=== PATIENT | male | born 1960 | race Caucasian/White ===

== ENCOUNTER → 2017-11-25 08:11 | Outpatient (CLI) | payer OTHER, SELFPAY ==
[2017-11-25 09:20] LABS: Add Manual Diff / Slide Review NO; Basophils Percent Auto 0.8 % (0-2); Eosinophils Percent Auto 1.5 % (2-4); Hematocrit 53.1 % (41-53); Hemoglobin 18.2 g/dL (13.5-17.5); Lymphocytes Percent Auto 13.3 % (25-40); Mean Corpuscular HGB Conc 34.3 % (30-36); Mean Corpuscular Hemoglobin 31.7 PG (26-34); Mean Corpuscular Volume 92.6 fL (80-100); Monocytes Percent Auto 6.9 % (3-14); Neutrophils Absolute Auto 7600 /uL (3000-5900); Neutrophils Percent Auto 77.5 % (50-75); Platelet Count 199 X10^3/uL (150-400); Red Blood Cell Count 5.74 X10^6/uL (4.5-5.9); Red Cell Distribution Width 14.1 % (11.6-14.8); White Blood Cell Count 9.8 X10^3/uL (4.5-11.0)
[2017-11-25 09:22] LABS: Hemoglobin A1C% w Est Avg Glu 5.9 % (4.0-6.0)
[2017-11-25 09:26] LABS: Alanine Aminotransferase 43 IU/L (21-72); Albumin 4.3 g/dL (3.5-5.0); Albumin Globulin Ratio 1.4 (1.0-2.8); Alkaline Phosphatase 64 U/L (38-126); Aspartate Aminotransferase 35 IU/L (17-59); Bilirubin Total 0.8 mg/dL (0.2-1.3); Blood Urea Nitrogen 24 mg/dL (9-20); Calcium 9.3 mg/dL (8.4-10.2); Carbon Dioxide 26 mmol/L (22-32); Chloride 106 mmol/L (98-107); Cholesterol 209 mg/dL (140-199); Estimated Glomerular Filt Rate > 60.0 mL/min (>60); Globulin 3.1 g/dL (1.7-4.1); Glucose 132 mg/dL (70-100); HDL Cholesterol 38 mg/dL (40-60); LDL Cholesterol Calculated 139 mg/dL (<100); Potassium 4.5 mmol/L (3.4-5.1); Sodium 145 mmol/L (137-145); Total Protein 7.4 g/dL (6.3-8.2); Triglycerides 159 mg/dL (35-150)
[2017-11-25 09:38] LABS: HEMOLYSIS 56 (0-50)
[2017-11-25 09:55] LABS: Prostate Specific Antigen Scrn 0.655 ng/mL (0.1-4.0)
== END ==
PROVIDERS: Family Provider Family Medicine; PCP Family Medicine; Visit Provider Family Medicine
DX: E29.1 Testicular hypofunction (principal); E34.9 Endocrine disorder, unspecified; E66.9 Obesity, unspecified; I10 Essential (primary) hypertension; E11.9 Type 2 diabetes mellitus without complications
CPT/HCPCS: 36415; 80053; 80061; 83036; 84403; 84443; 85025; G0103

== ENCOUNTER 2019-08-21 11:55 | Inpatient (IN) | payer OTHER, SELFPAY ==
[2019-08-21 12:14] VITALS: BP 118/63; PULSE 89; RESP 17; TEMP 36.4; O2SAT 95
[2019-08-21 12:30] VITALS: BMI 47.2
[2019-08-21] MEDS: CEFAZOLIN 2 GM/100 ML FROZ.PIGGY IV ×2 (13:00→20:59)
--- NOTE | 2019-08-21 13:14 | P.HP_ITS ---
History of Present Illness History of Present Illness Date Patient Seen: 08/21/19 Time Patient Seen: 13:14 Chief complaint: right lower extremity cellulitis Narrative: Patient comes in today complaining of increased redness swelling and discomfort to his right lower extremity. Patient has a history of cellulitis of his lower right leg, requiring hospitalization on multiple occasions. He was seen in clinic 2 days ago for cellulitis at this site and was given a 5 day course of cephalexin. He filled the prescription that day and took 3 doses. Yesterday he took all 4 daily doses, and this morning one dose. He returned to clinic today due to interval worsening of the right lower leg erythema, warmth, pain, and swelling. Not only is it affecting his lower ext remity says his moved up past his knee and down into his foot and ankle. Swelling is quite pronounced. After starting the antibiotic 2 days ago, he had chills that evening and sweat profusely overnight. He denies ever feeling a subjective fever. He has been sleeping with it elevated and not working in order to minimize time on his feet. He reports that he may have taken cephalexin the past without success. Patient has a history in addition of diabetes morbid obesity hypertension. Patient has no recent history of travel. No history previously of venous thromboembolism. He is not short of breath not complain of chest pain palpitations dizziness lightheadedness he has been eating well. Patient History Medical History Anxiety (Chronic) Depression (Chronic) Hypertension (Chronic) Insulin resistance (Chronic) Melanoma (Chronic) Obesity (Chronic) Surgical History History of arthroplasty (Resolved) History of knee replacement History of lateral meniscus repair of left knee (Resolved) Family & Social History Social History: household members spouse Prior Living Arrangements House Safety & Behavioral: Feels Safe in Current Yes Environment Been Physically Hurt or No Threatened By a Person Tobacco & Substance use: Smoking Status Never smoker alcohol intake current alcohol intake frequency holiday/special occasion Substance Use Type does not use Meds Home Medications and Allergies Home Medications Medication Instructions Recorded Confirmed Type lisinopril 40 mg PO QDAY #90 tab 08/21/18 08/21/19 Rx Disabled Parking Permit #1 each 09/03/18 08/21/19 Rx bupropion HCl 150 mg tablet,12 hr 300 mg PO QDAY #180 tab 01/07/19 08/21/19 Rx sustained-release furosemide 40 mg tablet 40 mg PO QDAY #30 tab 06/10/19 08/21/19 Rx hydrochlorothiazide 25 mg tablet 25 mg PO QDAY #90 tab 08/14/19 08/21/19 Rx cephalexin 500 mg capsule 500 mg PO QID #20 cap 08/19/19 08/21/19 Rx ibuprofen 800 mg PO BID PRN 08/21/19 08/21/19 History metformin 500 mg PO 1700 08/21/19 08/21/19 History Allergies Allergy/AdvReac Type Severity Reaction Status Date / Time No Known Drug Allergies Allergy Verified 08/21/19 11:15 Exam Vital Signs (past 8 hours): - 08/21/19 12:14 Temperature 97.5 F L Pulse Rate 89 Respiratory Rate 17 Blood Pressure 118/63 Pulse Oximetry 95 Oxygen Flow Rate 0 Narrative Exam Narrative: Gen.: Alert oriented obese elderly gentleman HEENT: NCAT PERRLA tympanic membranes are clear nares are patent oral mucosa is moist no tonsillar hypertrophy neck is supple without lymphadenopathy no thyroid enlargement. Cardio: S1-S2 regular rate and rhythm no murmurs appreciated. Respiratory: Lungs are clear to auscultation no wheezes or crackles normal respiratory effort. Abdomen: Soft nontender no rebound or guarding no liver spleen enlargement no appreciable hernias Extremities: Bilateral lower extremity edema. Right leg significantly more swollen than the left leg. Redness skin changes from mid forefoot to right below the knee. The lower extremity also has a significant amount of warmth. Neurologic: Grossly intact. Objective Labs Result Diagrams: 08/21/19 12:24 08/21/19 12:24 Assessment & Plan Assessment & Plan narrative: Right lower extremity cellulitis and significant edema. Failed outpatient antibiotics. Patient is now still having night sweats and chills. Will admit him to the hospital for IV antibiotics. Will be started on Ancef 2 g IV q.8 hours. He will have CBC comprehensive metabolic profile blood cultures done before. He will have elevation of his leg up. Warm compresses and pain medication as needed. Patient is at low risk for MRSA. Will monitor closely for therapeutic response. Will go ahead and do an ultrasound of the lower extremity to rule out venous thromboembolism. Morbid obesity. Patient has a BMI of 47. Has significant morbid obesity and lower extremity venous changes and venous sufficiency certainly have contributed to this problem. This is going to make his medical care much more complex. With movement. Elevation of his leg and nursing support during this time. Essential hypertension. Patient's blood pressure is currently well controlled will continue with his lisinopril 40 mg once daily and hydrochlorothiazide 25 mg once daily monitor closely his blood pressure. Impaired fasting blood glucose patient is on metformin. While he is here in the hospital will go ahead and add in a hemoglobin A1c to monitor and see where things are at from that standpoint. History of depression. He will continue on his Wellbutrin 150 mg sustained release tablet. He takes 300 mg once daily. Code status patient is a full code Prophylaxis with DVT with Lovenox. Disposition and plan patient meets inpatient criteria due to the significant cellulitis that he has which I anticipate will require multiple days of IV antibiotics. Go over test will be added to his testing as pre screening. Quality VTE Deep Vein Thrombosis/Pulmonary Embolism Present on Admission: No
--- NOTE | 2019-08-21 13:21 | DI.US.S_ITS ---
PROCEDURE: US PERIPH VENOUS LOW EXTREM BI INDICATIONS: LOWER LEG SWELLING TECHNIQUE: Real-time imaging, as well as color and pulse Doppler interrogation, were performed of the deep veins of both legs from the inguinal ligament to the popliteal fossa. COMPARISON: None. FINDINGS: Right: The common femoral, femoral and popliteal veins are normally compressible, and free of intraluminal thrombus. Color and pulse Doppler demonstrate normal phasic intravascular flow. There is normal augmentation response to distal compression maneuver. Left: The common femoral, femoral and popliteal veins are normally compressible, and free of intraluminal thrombus. Color and pulse Doppler demonstrate normal phasic intravascular flow. There is normal augmentation response to distal compression maneuver. This study is limited by body habitus. IMPRESSION: Negative for deep venous thrombosis. Dictated by: Marcos Wren M.D. on 08/21/2019 at 13:28 Approved by: Marcos Wren M.D. on 08/21/2019 at 13:29
[2019-08-21 13:54] LABS: Add Manual Diff / Slide Review NO; Basophils Absolute Auto 100 /uL (0-100); Basophils Percent Auto 0.6 % (0-2); Eosinophils Absolute Auto 0 /uL (0-450); Eosinophils Percent Auto 0.3 % (2-4); Hematocrit 36.9 % (41-53); Hemoglobin 12.9 g/dL (13.5-17.5); Lymphocytes Absolute Auto 900 /uL (1100-4500); Lymphocytes Percent Auto 8.8 % (25-40); Mean Corpuscular HGB Conc 34.8 % (30-36); Mean Corpuscular Hemoglobin 30.7 PG (26-34); Mean Corpuscular Volume 88.1 fL (80-100); Monocytes Absolute Auto 700 /uL (0-900); Monocytes Percent Auto 6.4 % (3-14); Neutrophils Absolute Auto 9000 /uL (1500-7000); Neutrophils Percent Auto 83.9 % (50-75); Platelet Count 193 X10^3/uL (150-400); Red Blood Cell Count 4.19 X10^6/uL (4.5-5.9); Red Cell Distribution Width 14.6 % (11.6-14.8); White Blood Cell Count 10.8 X10^3/uL (4.5-11.0)
[2019-08-21 14:18] LABS: Alanine Aminotransferase 73 IU/L (<50); Albumin 3.6 g/dL (3.5-5.0); Albumin Globulin Ratio 1.1 (1.0-2.8); Alkaline Phosphatase 138 U/L (38-126); Aspartate Aminotransferase 46 IU/L (17-59); BUN Creatinine Ratio 30.3 (6-22); Bilirubin Total 0.8 mg/dL (0.2-1.3); Blood Urea Nitrogen 30 mg/dL (9-20); Calcium 9.2 mg/dL (8.4-10.2); Carbon Dioxide 24 mmol/L (22-32); Chloride 101 mmol/L (98-107); Estimated Glomerular Filt Rate > 60.0 mL/min (>60); Globulin 3.2 g/dL (1.7-4.1); Glucose 169 mg/dL (80-110); HEMOLYSIS 16 (0-50); Potassium 3.3 mmol/L (3.4-5.1); Sodium 136 mmol/L (137-145); Total Protein 6.8 g/dL (6.3-8.2)
--- NOTE | 2019-08-21 14:36 | PC.NURSE ---
Pt to room 211 as a direct admit from Dr. Dougherty at 1210. Pt transferred to bed, has voided per urinal, has been oriented to room, call light, bed controls and tv controls. Pt's right lower leg is elevated above his heart on pillows and Pt states he is comfortable. Spouse at the bedside. Pt reminded Pt to call for assistance as needed and to not get up without assistance.
[2019-08-21 15:25] VITALS: BP 128/72; PULSE 84; RESP 18; TEMP 38.1; O2SAT 97
[2019-08-21 15:28] LABS: COVID19 -Nasal RAPID Negative (Negative)
[2019-08-21] MEDS: ACETAMINOPHEN 325 MG TABLET 650 MG PO (16:45)
[2019-08-21] MEDS: METFORMIN XR 500 MG TABLET PO (16:53)
[2019-08-21 18:45] VITALS: TEMP 38.1
[2019-08-21 18:50] VITALS: TEMP 36.8
[2019-08-21 19:27] VITALS: BP 124/66; PULSE 82; RESP 18; TEMP 36.7; O2SAT 92
[2019-08-21] MEDS: HYDROCODONE/ACET 5/325 TABLET 1 TAB PO (20:59)
[2019-08-22] VITALS (9 sets, daily range): BP systolic 110–137; BP diastolic 54–82; PULSE 70–76; RESP 16–18; TEMP 36.1–37.4; O2SAT 94–96
--- NOTE | 2019-08-22 00:05 | PC.NURSE ---
pt. comfortable in bed. RLE elevated. warm to touch, erythema within marked borders. pain controlled with tylenol and norco. pt was febrile, administered tylenol then became afebrile. pt using the urinal. VSS. call light in reach. bed alarm active.
[2019-08-22] MEDS: CEFAZOLIN 2 GM/100 ML FROZ.PIGGY IV ×3 (04:44→21:00)
[2019-08-22 06:36] LABS: Add Manual Diff / Slide Review NO; Basophils Absolute Auto 0 /uL (0-100); Basophils Percent Auto 0.3 % (0-2); Eosinophils Absolute Auto 0 /uL (0-450); Eosinophils Percent Auto 0.5 % (2-4); Hematocrit 32.2 % (41-53); Lymphocytes Absolute Auto 1300 /uL (1100-4500); Lymphocytes Percent Auto 12.2 % (25-40); Mean Corpuscular HGB Conc 34.3 % (30-36); Mean Corpuscular Hemoglobin 30.3 PG (26-34); Mean Corpuscular Volume 88.3 fL (80-100); Monocytes Absolute Auto 1000 /uL (0-900); Neutrophils Absolute Auto 8400 /uL (1500-7000); Platelet Count 183 X10^3/uL (150-400); Red Blood Cell Count 3.65 X10^6/uL (4.5-5.9); White Blood Cell Count 10.8 X10^3/uL (4.5-11.0)
[2019-08-22 06:44] LABS: Blood Urea Nitrogen 20 mg/dL (9-20); Calcium 8.7 mg/dL (8.4-10.2); Carbon Dioxide 29 mmol/L (22-32); Chloride 98 mmol/L (98-107); Estimated Glomerular Filt Rate > 60.0 mL/min (>60); Glucose 178 mg/dL (80-110); HEMOLYSIS < 15 (0-50); Potassium 3.3 mmol/L (3.4-5.1); Sodium 133 mmol/L (137-145)
[2019-08-22 07:00] LABS: Hemoglobin A1C% w Est Avg Glu 6.2 % (4.0-6.0)
--- NOTE | 2019-08-22 07:35 | P.PN_ITS ---
Subjective Subjective Date Patient Seen: 08/22/19 Time Patient Seen: 07:35 Interval history: Patient seen and evaluated this morning. Did well overnight. Eating well. Minimal leg pain. Still swollen still red. Vital signs have been stable overnight. Blood cultures no growth to this point. He is up ambulating. He is tolerating his diet. He thinks it may be doing a little bit better. Not needing much pain control. Exam Vital Signs (past 8 hours): - 08/22/19 00:54 08/22/19 04:54 08/22/19 06:24 Temperature 98.1 F 98.4 F Pulse Rate 76 76 Respiratory Rate 17 16 Blood Pressure 110/54 L 122/64 Pulse Oximetry 94 94 Oxygen Delivery Method Room Air Oxygen Flow Rate 0 Narrative Exam Narrative: Gen.: Not alert good historian. No apparent distress HEENT: Pupils equal round and reactive or mucosa is moist neck is supple Cardio: S1-S2 regular rate and rhythm no murmurs appreciated. Respiratory: Lungs are clear to auscultation no wheezes or crackles normal respiratory effort. Abdomen: Soft nontender no rebound or guarding no liver spleen enlargement no appreciable hernias Extremities: Lower extremity edema and redness swelling. Still quite pronounc ed. Objective Labs Result Diagrams: 08/22/19 06:10 08/22/19 06:10 Labs: Laboratory Results - last 24 hr 08/21/19 08/21/19 08/21/19 12:24 12:24 14:10 WBC 10.8 RBC 4.19 L Hgb 12.9 L Hct 36.9 L MCV 88.1 MCH 30.7 MCHC 34.8 RDW 14.6 Plt Count 193 Neut % (Auto) 83.9 H Lymph % (Auto) 8.8 L [place] % (Auto) 6.4 Eos % (Auto) 0.3 L Baso % (Auto) 0.6 Neut # (Auto) 9000 H Lymph # (Auto) 900 L [place] # (Auto) 700 Eos # (Auto) 0 Baso # (Auto) 100 Sodium 136 L Potassium 3.3 L Chloride 101 Carbon Dioxide 24 BUN 30 H Creatinine 0.99 Estimated GFR > 60.0 BUN/Creatinine Ratio 30.3 H Glucose 169 H Hemoglobin A1c Calcium 9.2 Total Bilirubin 0.8 AST 46 ALT 73 H Alkaline Phosphatase 138 H Total Protein 6.8 Albumin 3.6 Globulin 3.2 Albumin/Globulin Ratio 1.1 COVID-19 PCR Negative 08/22/19 08/22/19 08/22/19 06:10 06:10 06:10 WBC 10.8 RBC 3.65 L Hgb 11.0 L Hct 32.2 L MCV 88.3 MCH 30.3 MCHC 34.3 RDW 15.0 H Plt Count 183 Neut % (Auto) 78.0 H Lymph % (Auto) 12.2 L [place] % (Auto) 9.0 Eos % (Auto) 0.5 L Baso % (Auto) 0.3 Neut # (Auto) 8400 H Lymph # (Auto) 1300 [place] # (Auto) 1000 H Eos # (Auto) 0 Baso # (Auto) 0 Sodium 133 L Potassium 3.3 L Chloride 98 Carbon Dioxide 29 BUN 20 Creatinine 0.87 Estimated GFR > 60.0 BUN/Creatinine Ratio 23.0 H Glucose 178 H Hemoglobin A1c 6.2 H Calcium 8.7 Total Bilirubin AST ALT Alkaline Phosphatase Total Protein Albumin Globulin Albumin/Globulin Ratio COVID-19 PCR Assessment & Plan Assessment & Plan narrative: Right lower extremity cellulitis and significant edema. Failed outpatient antibiotics. Did well overnight. Continue with Ancef 2 g IV 8 hours. White blood cell counts normal. Afebrile blood cultures pending this morning. Cellulitis is still present and prominent. Morbid obesity. Patient has a BMI of 47. Has significant morbid obesity and lower extremity venous changes and venous sufficiency certainly have contributed to this problem. This is going to make his medical care much more complex. With movement. Elevation of his leg and nursing support during this time. Essential hypertension. Patient's blood pressure is currently well controlled continue with current antihypertensive. Impaired fasting blood glucose patient is on metformin. Hemoglobin A1c pending this morning. Blood sugar was mildly elevated but under 200. He is not under diabetic diet. History of depression. He will continue on his Wellbutrin 150 mg sustained release tablet. He takes 300 mg once daily. Code status patient is a full code Prophylaxis with DVT with Lovenox. Disposition and plan. Continue IV antibiotics ambulation today. Re-evaluate tomorrow. Possible discharge of 20/4 to 48 hours. Quality VTE Deep Vein Thrombosis/Pulmonary Embolism Present on Admission: No
[2019-08-22] MEDS: buPROPion SR 150 MG TAB 300 MG PO (09:20)
[2019-08-22] MEDS: lisinopriL 20 MG TABLET 40 MG PO (09:20)
[2019-08-22] MEDS: HYDROCODONE/ACET 5/325 TABLET 1 TAB PO ×2 (09:20→13:01)
[2019-08-22] MEDS: ENOXAPARIN 40 MG/0.4 ML SYRINGE SUBCUT ×2 (09:21→21:01)
--- NOTE | 2019-08-22 13:48 | PC.NURSE ---
Day shift: Pt tolerating IV antibiotics. Good urine output. VS WNL. Pain controlled with NORCO per APR. RLE is red and warm to the touch. Another RN outlined the affected area yesterday. Pt tolerating food and PO intake. Denies any nausea. Uses call light proper and agrees to not get OOB w/o help from staff. Refused SCD today. He did get Lovenox though. Encouraged to move feet when in bed.
[2019-08-22] MEDS: METFORMIN XR 500 MG TABLET PO (17:04)
[2019-08-22] MEDS: POTASSIUM CHLORIDE 20 MEQ/15 ML UDC PO (17:04)
--- NOTE | 2019-08-22 18:24 | PC.NURSE ---
Addendum entered by Savanna Barreto R.N. 08/22/19 22:44: Pt reports N/V. Zofran administered. Pt reports zofran effective. Original Note: Assumed care of pt at 1500. Pt resting in bed during bedside hand-off. RLE warm, red, edematous. Outlined in pen. No drainage or open areas noted. Denies pain. Enc to reposition for pressure injury prevention. Calling appropriately for needs.
[2019-08-22] MEDS: ONDANSETRON 4 MG/2 ML INJ IV (22:13)
[2019-08-23] VITALS (9 sets, daily range): BP systolic 92–152; BP diastolic 45–79; PULSE 67–74; RESP 16–20; TEMP 36–37.3; O2SAT 91–95
[2019-08-23] MEDS: CEFAZOLIN 2 GM/100 ML FROZ.PIGGY IV ×3 (04:59→21:08)
--- NOTE | 2019-08-23 05:42 | PM.PN.1 ---
Subjective Subjective Date Patient Seen: 08/23/19 Time Patient Seen: 05:42 Interval history: Patient is doing well. Vital signs are stable. No more night sweats he says. Continued to have slow improvement of the cellulitis of his leg. Swelling is down. No pain. Had an episode of vomiting last night. Says that is much better now this morning. Had a bowel movement. Exam Vital Signs (past 8 hours): - 08/22/19 23:30 08/23/19 03:00 08/23/19 04:05 Temperature 97.4 F L 98.0 F Pulse Rate 74 69 Respiratory Rate 16 16 Blood Pressure 120/65 105/55 L 114/60 Pulse Oximetry 94 91 Oxygen Delivery Method Room Air Oxygen Flow Rate 0 Narrative Exam Narrative: Gen.: Alert and oriented x3 no apparent distress. HEENT: NCAT PERRLA tympanic membranes are clear nares are patent oral mucosa is moist no tonsillar hypertrophy neck is supple without lymphadenopathy no thyroid enlargement. Cardio: S1-S2 regular rate and rhythm no murmurs appreciated. Respiratory: Lungs are clear to auscultation no wheezes or crackles normal respiratory effort. Abdomen: Soft nontender no rebound or guarding no liver spleen enlargement no appreciable hernias Extremities: Right lower extremity cellulitis. From just below the knee to the ankle. Improving redness. Still swollen but also improved mildly tender Neurologic: Grossly intact. Objective Labs Result Diagrams: 08/22/19 06:10 08/22/19 06:10 Labs: Laboratory Results - last 24 hr 08/22/19 08/22/19 08/22/19 06:10 06:10 06:10 WBC 10.8 RBC 3.65 L Hgb 11.0 L Hct 32.2 L MCV 88.3 MCH 30.3 MCHC 34.3 RDW 15.0 H Plt Count 183 Neut % (Auto) 78.0 H Lymph % (Auto) 12.2 L [place] % (Auto) 9.0 Eos % (Auto) 0.5 L Baso % (Auto) 0.3 Neut # (Auto) 8400 H Lymph # (Auto) 1300 [place] # (Auto) 1000 H Eos # (Auto) 0 Baso # (Auto) 0 Sodium 133 L Potassium 3.3 L Chloride 98 Carbon Dioxide 29 BUN 20 Creatinine 0.87 Estimated GFR > 60.0 BUN/Creatinine Ratio 23.0 H Glucose 178 H Hemoglobin A1c 6.2 H Calcium 8.7 Assessment & Plan Assessment & Plan narrative: Right lower extremity cellulitis and significant edema. Failed outpatient antibiotics. No fever no more night sweats some nausea vomiting last night but improved. Antibiotics appear to be working. Cellulitis is improved clinically. Morbid obesity. Patient has a BMI of 47. Has significant morbid obesity and lower extremity venous changes and venous sufficiency certainly have contributed to this problem. This is going to make his medical care much more complex. With movement. Elevation of his leg and nursing support during this time. Essential hypertension. Patient's blood pressure is currently well controlled continue with current antihypertensive. Impaired fasting blood glucose patient is on metformin. Hemoglobin A1c pending this morning. Blood sugar was mildly elevated but under 200. He is not under diabetic diet. History of depression. He will continue on his Wellbutrin 150 mg sustained release tablet. He takes 300 mg once daily. Code status patient is a full code Prophylaxis with DVT with Lovenox. Disposition and plan. Home tomorrow with outpatient antibiotics. Quality VTE Deep Vein Thrombosis/Pulmonary Embolism Present on Admission: No
[2019-08-23 06:19] LABS: BUN Creatinine Ratio 22.8 (6-22); Blood Urea Nitrogen 18 mg/dL (9-20); Calcium 8.7 mg/dL (8.4-10.2); Carbon Dioxide 30 mmol/L (22-32); Chloride 100 mmol/L (98-107); Estimated Glomerular Filt Rate > 60.0 mL/min (>60); Glucose 179 mg/dL (80-110); HEMOLYSIS < 15 (0-50); Potassium 3.7 mmol/L (3.4-5.1); Sodium 135 mmol/L (137-145)
[2019-08-23 06:32] LABS: Add Manual Diff / Slide Review NO; Basophils Absolute Auto 0 /uL (0-100); Basophils Percent Auto 0.4 % (0-2); Eosinophils Absolute Auto 100 /uL (0-450); Hematocrit 32.9 % (41-53); Hemoglobin 11.2 g/dL (13.5-17.5); Lymphocytes Absolute Auto 1700 /uL (1100-4500); Lymphocytes Percent Auto 14.5 % (25-40); Mean Corpuscular HGB Conc 33.9 % (30-36); Mean Corpuscular Hemoglobin 30.1 PG (26-34); Mean Corpuscular Volume 88.6 fL (80-100); Monocytes Absolute Auto 700 /uL (0-900); Monocytes Percent Auto 6.6 % (3-14); Neutrophils Absolute Auto 8800 /uL (1500-7000); Neutrophils Percent Auto 77.5 % (50-75); Platelet Count 228 X10^3/uL (150-400); Red Blood Cell Count 3.71 X10^6/uL (4.5-5.9); Red Cell Distribution Width 14.7 % (11.6-14.8); White Blood Cell Count 11.4 X10^3/uL (4.5-11.0)
[2019-08-23] MEDS: POTASSIUM CHLORIDE 20 MEQ/15 ML UDC PO ×2 (09:09→16:41)
[2019-08-23] MEDS: buPROPion SR 150 MG TAB 300 MG PO (09:10)
[2019-08-23] MEDS: lisinopriL 20 MG TABLET 40 MG PO (09:10)
[2019-08-23] MEDS: ENOXAPARIN 40 MG/0.4 ML SYRINGE SUBCUT ×2 (09:10→21:08)
--- NOTE | 2019-08-23 12:51 | CM.DANOTE ---
Addendum entered by Melody Sanchez LPN 08/23/19 14:53: Met with pt and introduced self and role. Pt is found up in chair, his cane at bedside (says he uses this primarily outside in his yard or uneven surfaces). Pt's leg is elevated: can see by markers that redness and swelling are receding but still impressive. Pt reports he has had this multiple times over the years and always in the one leg. He notes he wishes he understood why if is specific to the one leg and what he might do so that this does not keep happening. He has discussed same he says with Dr. Dougherty. Pt confirms he plans to d/c home when ok'd for same. His [facility]: cell: [phone] will pick him up at discharge. Original Note: Discharge Planning/Care Management DCP: assessment: Case received yesterday and discussed in Team Rounds. Caseload triage dictated need to defer face/face meeting with pt to today. Pt is a 59 year old male who admitted to care of his PCP: Dr. Dougherty 08/20 in afternoon for treatment of recurrent R LE cellulitis after failing clinic treatment for same and in setting of diabetes, morbid obesity (335 lbs) and hypertension). Dr. Dougherty saw pt again early this morning, noted his improvement and likely plan for a d/c in next day or so if this continues. Will check in with pt now as planned. CM Discharge Assessment Start: 08/23/19 12:50 Freq: Status: Active Protocol: Document 08/23/19 12:50 ITV (Rec: 08/23/19 12:51 ITV [id number]) Discharge Planning Assessment Advance Directives? No Advance Directives on File No History Provided By Patient,Medical Record Prior Living Arrangements House Household Members spouse Is patient alert and oriented? Yes Review Status In Process
--- NOTE | 2019-08-23 15:32 | PC.NURSE ---
Right leg erythema retreating from black sharpie outline, below knee level; LS diminished; pt encouraged to deep breath
[2019-08-23] MEDS: METFORMIN XR 500 MG TABLET PO (16:41)
--- NOTE | 2019-08-23 23:33 | PC.NURSE ---
1650 - BS 166. Reported to RN who said not to do ACHS BS, so no BS taken at 2100 per RN.
[2019-08-24] MEDS: HYDROCODONE/ACET 5/325 TABLET 1 TAB PO (00:05)
[2019-08-24] MEDS: CEFAZOLIN 2 GM/100 ML FROZ.PIGGY IV ×2 (04:48→12:24)
[2019-08-24 05:11] VITALS: BP 107/60; PULSE 72; RESP 18; TEMP 36.9; O2SAT 97
[2019-08-24] MEDS: POTASSIUM CHLORIDE 20 MEQ/15 ML UDC PO (08:19)
[2019-08-24] MEDS: buPROPion SR 150 MG TAB 300 MG PO (08:20)
[2019-08-24] MEDS: ENOXAPARIN 40 MG/0.4 ML SYRINGE SUBCUT (08:20)
[2019-08-24] MEDS: SODIUM CHLORIDE 0.9% FLUSH 10 ML IV (08:27)
[2019-08-24 09:00] VITALS: BP 119/80; PULSE 73; RESP 16; TEMP 36.4; O2SAT 95
--- NOTE | 2019-08-24 10:52 | PM.DS.1 ---
History of Present Illness History of Present Illness Date Patient Seen: 08/24/19 Time Patient Seen: 10:52 Chief complaint: right lower extremity cellulitis Narrative: Patient comes in today complaining of increased redness swelling and discomfort to his right lower extremity. Patient has a history of cellulitis of his lower right leg, requiring hospitalization on multiple occasions. He was seen in clinic 2 days ago for cellulitis at this site and was given a 5 day course of cephalexin. He filled the prescription that day and took 3 doses. Yesterday he took all 4 daily doses, and this morning one dose. He returned to clinic today due to interval worsening of the right lower leg erythema, warmth, pain, and swelling. Not only is it affecting his lower extremity says his moved up past his knee and down into his foot and ankle. Swelling is quite pronounced. After starting the antibiotic 2 days ago, he had chills that evening and sweat profusely overnight. He denies ever feeling a subjective fever. He has been sleeping with it elevated and not working in order to minimize time on his feet. He reports that he may have taken cephalexin the past without success. Patient has a history in addition of diabetes morbid obesity hypertension. Patient has no recent history of travel. No history previously of venous thromboembolism. He is not short of breath not complain of chest pain palpitations dizziness lightheadedness he has been eating well. {from Dr. Dougherty's H&P 08/21/19} Discharge Providers Provider Date of admission: 08/21/19 11:55 Discharge Date: 08/24/19 Primary care physician: Alberto Dougherty MD Discharge provider: Osiel Park MD Summary Hospital Course Discharge Diagnosis: 1. Right lower extremity cellulitis, organism not identified, failed outpatient treatment 2. Morbid obesity with BMI 46+ 3. Essential hypertension 4. Hypogonadism 5. Obstructive sleep apnea 6. Diabetes type 2 on oral medication, controlled 7. Normocytic anemia, appears to be new, not evaluated or investigated during this hospitalization Hospital Course: Patient was admitted to the hospital after failing outpatient course of oral antibiotics. He was placed on IV 1st generation cephalosporin and over time slowly had improvement in the erythema and discomfort located in the right pretibial and lower leg area. This was by no means completely resolved upon discharge but was continuing to improve. Patient was felt to be improved enough to discharge home to continue course of additional oral antibiotics. His oral antibiotics we switched from the original antibiotic which he failed on at home. Blood cultures were negative in no specific organisms were identified, he will be placed on broad-spectrum oral antibiotics given his failure at home previously and his diabetes etc Patient was also found to be relatively anemic during this hospitalization. Previously if anything previously had a relative erythrocytosis with hemoglobin in excess of 18, but was admitted with a hemoglobin of 12.9, and fell to 11.0 at its lowest point. No evidence of obvious bleeding. Patient has never had any colon cancer screening or been told he had any evidence of anemia previously. Patient did not receive large volume IV fluids and his anemia was persistent for the several days he was hospitalized (based on routine CBC), so doubt this would be a dilutional phenomenon. This will need to be evaluated as an outpatient. This is discussed with the patient as well. Patient's other medical problems seem relatively stable. Blood pressure was low if anything. Blood sugars were acceptable although not outstanding Status at Discharge Cognitive/behavioral status at discharge: oriented Functional status at discharge: independent ambulation Overall status at discharge: patient is progressing back to baseline Time Spent with Patient Time spent: Less than 30 minutes Exam Vital Signs (past 8 hours): - 08/24/19 05:11 08/24/19 09:00 Temperature 98.4 F 97.6 F Pulse Rate 72 73 Respiratory Rate 18 16 Blood Pressure 107/60 119/80 Pulse Oximetry 97 95 Oxygen Delivery Method Room Air Oxygen Flow Rate 0 Narrative Exam Narrative: Obese male in no obvious distress lying in his hospital that with his right leg expose HEENT-unremarkable Lungs-clear good breath sounds Heart-regular rate and rhythm Abdomen-obese, positive bowel tones Extremities-erythema right pretibial area well within marked lines both distally at the ankle and more proximally at the knee, approximately 3-4 cm inside the line. Chronic edema and erythema still present however Objective Labs Result Diagrams: 08/23/19 05:38 08/23/19 05:38 Discharge Plan Discharge Plan Patient Disposition: Home Discharge orders & Medications Prescriptions: New sulfamethoxazole-trimethoprim 800-160 mg tablet 1 tab PO BID Qty: 14 RF: 1 Continued lisinopril 40 mg tablet 40 mg PO QDAY Qty: 90 RF: 3 bupropion HCl [Wellbutrin SR] 150 mg tablet sustained-release 12 hr 300 mg PO QDAY Qty: 180 RF: 3 furosemide 40 mg tablet 40 mg PO QDAY Qty: 30 RF: 3 hydrochlorothiazide 25 mg tablet 25 mg PO QDAY Qty: 90 RF: 0 ibuprofen 800 mg Tablet 800 mg PO BID PRN (Reason: Pain (Scale Score 4-6)) RF: 0 metformin 500 mg Tablet Extended Release 24 Hr 500 mg PO 1700 RF: 0 Discontinued cephalexin [Keflex] 500 mg capsule 500 mg PO QID Qty: 20 RF: 0 No Action (DME) Disabled Parking Permit 0 .ROUTE .MEDSUPPLY Qty: 1 RF: 0 Follow up/Referrals: Alberto Dougherty MD [Primary Care Provider] - 1 Week (Patient will need to call for appointment on Monday) Discharge Health Status Multidrug resistant organism: No MDRO Diet/Activity/Treatments Diet: Diet as Tolerated Visit Report/Discharge Packet Instructions: DI for Cellulitis -- Adult Visit Report Forms: Patient Portal/API, Stroke Signs & Symptoms Discharge Data Primary Care Provider: Alberto Dougherty Quality VTE Deep Vein Thrombosis/Pulmonary Embolism Present on Admission: No
[2019-08-24 12:33] VITALS: BP 138/80; PULSE 72; RESP 16; TEMP 36.6; O2SAT 95
--- NOTE | 2019-08-24 13:26 | PC.NURSE ---
Discharge instructions and home care handouts reviewed with patient and his . They state understanding and have no further questions or concerns. Antibiotic completed IV as ordered, then patient's IV removed prior to discharge. Prescription sent in electronically. Patient escorted out via wheelchair with all belongings to home with his . Patient to call on Monday to schedule follow up with PCP.
== END 2019-08-24 13:37 | disposition home or self-care (01) | DRG 603 ==
PROVIDERS: Admitting Provider Family Medicine; Family Provider Family Medicine; PCP Family Medicine; Referring Provider Family Medicine; Visit Provider Family Medicine
DX: L03.115 Cellulitis of right lower limb (principal); Z68.42 Body mass index [BMI] 45.0-49.9, adult; E66.01 Morbid (severe) obesity due to excess calories; I10 Essential (primary) hypertension; F32.9 Major depressive disorder, single episode, unspecified; E11.9 Type 2 diabetes mellitus without complications; D64.9 Anemia, unspecified; Z11.59 Encounter for screening for other viral diseases
CPT/HCPCS: 36415; 80048; 80053; 82962; 83036; 85025; 87040; 87635; 93970; 99223; 99232; 99238; J0690; J1650; J2405

== ENCOUNTER → 2019-09-05 10:24 | Outpatient (CLI) | payer OTHER, SELFPAY ==
[2019-08-21 12:30] VITALS: BMI 47.2
[2019-09-05 11:25] LABS: Add Manual Diff / Slide Review NO; Basophils Absolute Auto 100 /uL (0-100); Basophils Percent Auto 0.9 % (0-2); Eosinophils Absolute Auto 100 /uL (0-450); Eosinophils Percent Auto 1.4 % (2-4); Lymphocytes Absolute Auto 2200 /uL (1100-4500); Lymphocytes Percent Auto 33.1 % (25-40); Mean Corpuscular HGB Conc 33.4 % (30-36); Mean Corpuscular Hemoglobin 29.8 PG (26-34); Mean Corpuscular Volume 89.3 fL (80-100); Monocytes Absolute Auto 600 /uL (0-900); Monocytes Percent Auto 9.8 % (3-14); Neutrophils Absolute Auto 3600 /uL (1500-7000); Neutrophils Percent Auto 54.8 % (50-75); Platelet Count 371 X10^3/uL (150-400); Red Blood Cell Count 4.03 X10^6/uL (4.5-5.9); Red Cell Distribution Width 14.9 % (11.6-14.8); White Blood Cell Count 6.6 X10^3/uL (4.5-11.0)
[2019-09-05 11:48] LABS: HEMOLYSIS < 15 (0-50); Iron 106 ug/dL (49-181)
[2019-09-05 11:59] LABS: Percent Iron Saturation 46 % (20-50); Total Iron Binding Capacity 228 ug/dL (261-462); Transferrin 168 mg/dL (206-381)
[2019-09-05 12:25] LABS: Ferritin 750 ng/mL (18-464)
[2019-09-05 12:38] LABS: Vitamin B12 755 pg/mL (239-931)
== END ==
PROVIDERS: Family Provider Family Medicine; PCP Family Medicine; Referring Provider Family Medicine; Visit Provider Family Medicine
DX: D64.9 Anemia, unspecified (principal)
CPT/HCPCS: 36415; 82607; 82728; 83540; 83550; 85025

== ENCOUNTER → 2019-12-16 15:02 | Outpatient (CLI) | payer OTHER, SELFPAY ==
[2019-12-05 09:25] VITALS: BMI 47.2
[2019-12-16 17:03] LABS: Hemoglobin A1C% w Est Avg Glu 6.3 % (4.0-6.0)
[2019-12-16 17:35] LABS: Alanine Aminotransferase 28 IU/L (<50); Albumin 4.6 g/dL (3.5-5.0); Albumin Globulin Ratio 1.5 (1.0-2.8); Alkaline Phosphatase 88 U/L (38-126); Aspartate Aminotransferase 22 IU/L (17-59); BUN Creatinine Ratio 34.3 (6-22); Bilirubin Total 0.5 mg/dL (0.2-1.3); Blood Urea Nitrogen 34 mg/dL (9-20); Calcium 9.7 mg/dL (8.4-10.2); Carbon Dioxide 30 mmol/L (22-32); Chloride 100 mmol/L (98-107); Estimated Glomerular Filt Rate > 60.0 mL/min (>60); Globulin 3.1 g/dL (1.7-4.1); Glucose 126 mg/dL (80-110); HEMOLYSIS < 15 (0-50); Potassium 4.3 mmol/L (3.4-5.1); Sodium 138 mmol/L (137-145); Total Protein 7.7 g/dL (6.3-8.2)
== END ==
PROVIDERS: Family Provider Family Medicine; PCP Family Medicine; Referring Provider Family Medicine; Visit Provider Family Medicine
DX: E11.9 Type 2 diabetes mellitus without complications (principal); I10 Essential (primary) hypertension
CPT/HCPCS: 36415; 80053; 83036

== ENCOUNTER → 2020-12-10 11:29 | Outpatient (CLI) | payer OTHER, SELFPAY ==
[2019-12-05 09:25] VITALS: BMI 47.2
[2020-12-10 13:12] LABS: Add Manual Diff / Slide Review NO; Basophils Absolute Auto 100 /uL (0-100); Basophils Percent Auto 0.7 % (0-2); Eosinophils Absolute Auto 100 /uL (0-450); Hematocrit 29.9 % (41-53); Hemoglobin 10.1 g/dL (13.5-17.5); Lymphocytes Absolute Auto 1900 /uL (1100-4500); Lymphocytes Percent Auto 15.4 % (25-40); Mean Corpuscular HGB Conc 33.9 % (30-36); Mean Corpuscular Hemoglobin 29.2 PG (26-34); Mean Corpuscular Volume 86.1 fL (80-100); Monocytes Absolute Auto 1100 /uL (0-900); Monocytes Percent Auto 9.2 % (3-14); Neutrophils Absolute Auto 8900 /uL (1500-7000); Neutrophils Percent Auto 73.7 % (50-75); Red Blood Cell Count 3.47 X10^6/uL (4.5-5.9); Red Cell Distribution Width 14.9 % (11.6-14.8); White Blood Cell Count 12.1 X10^3/uL (4.5-11.0)
[2020-12-10 13:22] LABS: Hemoglobin A1C% w Est Avg Glu 6.7 % (4.0-6.0)
[2020-12-10 14:00] LABS: Alanine Aminotransferase 52 IU/L (<50); Albumin 3.7 g/dL (3.5-5.0); Albumin Globulin Ratio 1.1 (1.0-2.8); Alkaline Phosphatase 97 U/L (38-126); Aspartate Aminotransferase 33 IU/L (17-59); Bilirubin Total 0.5 mg/dL (0.2-1.3); Blood Urea Nitrogen 41 mg/dL (9-20); Calcium 9.8 mg/dL (8.4-10.2); Carbon Dioxide 32 mmol/L (22-32); Chloride 96 mmol/L (98-107); Cholesterol 213 mg/dL (140-199); Estimated Glomerular Filt Rate 42.9 mL/min (>60); Globulin 3.3 g/dL (1.7-4.1); Glucose 95 mg/dL (80-110); HDL Cholesterol 21 mg/dL (40-60); HEMOLYSIS < 15 (0-50); Potassium 3.9 mmol/L (3.4-5.1); Sodium 140 mmol/L (137-145); Triglycerides 408 mg/dL (35-150)
[2020-12-10 14:21] LABS: Prostate Specific Antigen 0.499 ng/mL (0.10-4.00)
[2020-12-10 14:23] LABS: TSH w/ Reflex to FT4 1.02 uIU/mL (0.47-4.68)
[2020-12-10 16:34] LABS: Anisocytosis 1+; Platelet Count 606 X10^3/uL (150-400)
[2020-12-10 16:58] LABS: HEMOLYSIS < 15 (0-50); Iron 52 ug/dL (49-181)
[2020-12-10 17:10] LABS: Percent Iron Saturation 29 % (20-50); Total Iron Binding Capacity 177 ug/dL (261-462); Transferrin 135 mg/dL (206-381)
[2020-12-10 18:11] LABS: Folate 14.6 ng/mL (2.76-20.0); Vitamin B12 982 pg/mL (239-931)
[2020-12-10 18:25] LABS: Ferritin 1530 ng/mL (18-464)
== END ==
PROVIDERS: Family Provider Family Medicine; PCP Family Medicine; Referring Provider Family Medicine; Visit Provider Family Medicine
DX: E11.9 Type 2 diabetes mellitus without complications (principal); E66.9 Obesity, unspecified; I10 Essential (primary) hypertension; D64.9 Anemia, unspecified
CPT/HCPCS: 36415; 80053; 80061; 82607; 82728; 82746; 83036; 83540; 83550; 84153; 84443; 85025

== ENCOUNTER → 2021-02-11 14:21 | Outpatient (CLI) | payer OTHER, SELFPAY ==
[2019-12-05 09:25] VITALS: BMI 47.2
[2021-02-11 15:08] LABS: Add Manual Diff / Slide Review NO; Basophils Absolute Auto 100 /uL (0-100); Basophils Percent Auto 0.8 % (0-2); Eosinophils Absolute Auto 100 /uL (0-450); Eosinophils Percent Auto 1.4 % (2-4); Hematocrit 36.8 % (41-53); Hemoglobin 12.5 g/dL (13.5-17.5); Lymphocytes Absolute Auto 2100 /uL (1100-4500); Lymphocytes Percent Auto 21.2 % (25-40); Mean Corpuscular HGB Conc 34.1 % (30-36); Mean Corpuscular Hemoglobin 30.7 PG (26-34); Mean Corpuscular Volume 90.3 fL (80-100); Monocytes Absolute Auto 800 /uL (0-900); Monocytes Percent Auto 7.6 % (3-14); Neutrophils Absolute Auto 6900 /uL (1500-7000); Platelet Count 302 X10^3/uL (150-400); Red Blood Cell Count 4.08 X10^6/uL (4.5-5.9)
[2021-02-11 15:26] LABS: Alanine Aminotransferase 29 IU/L (<50); Albumin 4.5 g/dL (3.5-5.0); Albumin Globulin Ratio 1.2 (1.0-2.8); Alkaline Phosphatase 75 U/L (38-126); Aspartate Aminotransferase 25 IU/L (17-59); BUN Creatinine Ratio 28.5 (6-22); Bilirubin Total 0.4 mg/dL (0.2-1.3); Blood Urea Nitrogen 41 mg/dL (9-20); Calcium 10.2 mg/dL (8.4-10.2); Carbon Dioxide 30 mmol/L (22-32); Chloride 102 mmol/L (98-107); Estimated Glomerular Filt Rate 49.9 mL/min (>60); Globulin 3.8 g/dL (1.7-4.1); Glucose 112 mg/dL (80-110); HEMOLYSIS < 15 (0-50); Lactate Dehydrogenase 371 U/L (313-618); Potassium 3.8 mmol/L (3.4-5.1); Sodium 141 mmol/L (137-145); Total Protein 8.3 g/dL (6.3-8.2)
[2021-02-15 13:09] LABS: M-Spike % Not Observed % (Not Observed); Urine Total Protein 5.6 mg/dL (Not Estab.)
[2021-02-15 14:36] LABS: Albumin 3.7 g/dL (2.9-4.4); Alpha-1-Globulin 0.3 g/dL (0.0-0.4); Alpha-2-Globulin 1.2 g/dL (0.4-1.0); Gamma Globulin 1.3 g/dL (0.4-1.8); Globulin Total 3.9 g/dL (2.2-3.9); Protein, Total 7.6 g/dL (6.0-8.5)
== END ==
PROVIDERS: Family Provider Family Medicine; PCP Family Medicine; Referring Provider Family Medicine; Visit Provider Family Medicine
DX: D64.89 Other specified anemias (principal); D75.839 Thrombocytosis, unspecified; D64.9 Anemia, unspecified; N17.9 Acute kidney failure, unspecified
CPT/HCPCS: 36415; 80053; 83615; 84155; 84156; 84165; 84166; 85025

== ENCOUNTER → 2021-02-24 12:55 | Outpatient (CLI) | payer OTHER, SELFPAY ==
[2019-12-05 09:25] VITALS: BMI 47.2
--- NOTE | 2021-02-24 12:57 | DI.CT.S_ITS ---
PROCEDURE: CT ABDOMEN PELVIS WO CON INDICATIONS: abnormal blood counts rahul TECHNIQUE: Image quality: Excellent. ABDOMEN: Lung bases: Mild bibasilar atelectasis. Heart size is normal. Solid organs: Liver is normal in size. Gallbladder is unremarkable. Pancreas is normal in contours. Spleen is normal in size. There is a 2.5 cm fat attenuation right adrenal nodule compatible with an adrenal adenoma. Left adrenal gland is unremarkable. Kidneys are normal in size, without hydronephrosis or nephrolithiasis. Ureters are normal in course and caliber. There is a 2.2 cm partially exophytic soft tissue attenuating hypodensity noted off the inferior pole of the left kidney. Peritoneum and bowel: Suggestion of mild asymmetric thickening of the right side of the rectum. This may be related to incomplete distension or compact stool. There is moderate scattered colonic diverticulosis without evidence for acute diverticulitis. No evidence for abnormal wall thickening of the imaged colon. Normal appendix. Visualized small bowel loops appear unremarkable. No suspicious asymmetric wall thickening seen although oral contrast does not opacify the entire small bowel. No evidence for obstruction. Visualized stomach appears unremarkable. No free fluid or air. Nodes and vessels: No retroperitoneal or mesenteric adenopathy by size criteria. Scattered atherosclerotic calcifications of the abdominal aorta and iliac vessels without aneurysmal dilatation. The inferior vena cava appears normal in size. Miscellaneous: There is a lobulated appearing fat containing paraumbilical measuring approximately 6.8 x 4.8 cm in axial cross-sectional dimension. No acute inflammatory changes seen. PELVIS: Genitourinary: Urinary bladder is unremarkable in appearance for degree of bladder distension. Prominent prostate with coarse calcifications. Miscellaneous: Small fat containing bilateral inguinal hernias without acute inflammation. These are larger on the right. No suspicious pelvic adenopathy. Bones: No suspicious bony lesions. No acute vertebral body compression fractures. Status post right hip arthroplasty. Mild multilevel lumbar spondylosis. IMPRESSION: 1. Suggestion of asymmetric, possibly irregular wall thickening involving the right side of the rectum. This may be related to decompression and/or adjacent fecal material. Recommend further evaluation with direct visualization. 2. A 2.2 cm partially exophytic left inferior pole renal hypodensity measuring soft tissue attenuation. This may represent a hyperdense cyst. Recommend further evaluation with renal ultrasound to determine if this is a cystic versus solid lesion. 3. Scattered colonic diverticulosis without acute diverticulitis. 4. Fat containing periumbilical and bilateral inguinal hernias without acute inflammation. 5. Atherosclerotic vascular disease. 6. Incidental note of 2.5 cm right adrenal adenoma. Dictated by: Isaak Garcia M.D. on 02/24/2021 at 16:55 Approved by: Isaak Garcia M.D. on 02/24/2021 at 17:08
== END ==
PROVIDERS: Family Provider Family Medicine; PCP Family Medicine; Referring Provider Family Medicine; Visit Provider Family Medicine
DX: D64.89 Other specified anemias (principal); D75.839 Thrombocytosis, unspecified; K57.30 Diverticulosis of large intestine without perforation or abscess without bleeding; K42.9 Umbilical hernia without obstruction or gangrene; K40.90 Unilateral inguinal hernia, without obstruction or gangrene, not specified as recurrent; I70.90 Unspecified atherosclerosis; D35.01 Benign neoplasm of right adrenal gland
CPT/HCPCS: 74176

== ENCOUNTER → 2021-03-05 15:22 | Outpatient (CLI) | payer OTHER, SELFPAY ==
[2019-12-05 09:25] VITALS: BMI 47.2
--- NOTE | 2021-03-05 15:24 | DI.CT.S_ITS ---
PROCEDURE: CT CHEST WO CON INDICATIONS: anemia thrombocytosis AKF TECHNIQUE: Noncontrast 5 mm thick sections acquired from the pulmonary apices to the posterior costophrenic angles. 1 mm lung window, 5 mm thick coronal and sagittal and 7 mm axial MIP reformats were then acquired. For radiation dose reduction, the following was used: automated exposure control, adjustment of mA and/or kV according to patient size. COMPARISON: [facility], CT, CT ABDOMEN PELVIS WO CON, 02/24/2021, 13:53. FINDINGS: Image quality: Excellent. Lungs and pleura: Minimal interstitial type prominence can be seen involving the subpleural right lung. No similar findings are seen within the left lung. No pleural effusions or pneumothorax. Central and peripheral airways are patent and normal in caliber. Mediastinum: Heart size is normal. No pericardial effusion. No mediastinal adenopathy by size criteria. Thoracic aorta and central pulmonary arteries are normal in size. Esophagus is normal in caliber. No hiatal hernia. Bones and chest wall: No suspicious bony lesions. Age-appropriate bony degenerative changes are seen. Accentuated thoracic kyphosis is seen. No vertebral body compression fractures. No axillary or supraclavicular adenopathy by size criteria. Right axillary clips are seen. Thyroid gland demonstrates no significant noncontrast abnormality. Abdomen: There is a low-density right adrenal adenoma seen that measures 2.8 cm, with an internal density of 3 Hounsfield units. IMPRESSION: Right-sided subpleural interstitial type prominence can be seen. Mild scarring or fibrosis is felt most likely. No similar findings can be seen on the left. Incidental note is made of: Right axillary clips Benign lipid rich right adrenal adenoma. Dictated by: Marcos Wren M.D. on 03/05/2021 at 16:15 Approved by: Marcos Wren M.D. on 03/05/2021 at 16:18
== END ==
PROVIDERS: Family Provider Family Medicine; PCP Family Medicine; Referring Provider Family Medicine; Visit Provider Family Medicine
DX: N17.9 Acute kidney failure, unspecified (principal); D35.01 Benign neoplasm of right adrenal gland; D64.89 Other specified anemias; D75.839 Thrombocytosis, unspecified
CPT/HCPCS: 71250

== ENCOUNTER → 2021-03-10 16:25 | Outpatient (CLI) | payer OTHER, SELFPAY ==
[2019-12-05 09:25] VITALS: BMI 47.2
--- NOTE | 2021-03-10 16:29 | DI.US.S_ITS ---
PROCEDURE: US RENAL COMPLETE INDICATIONS: FU CT 02/24/21/area of hypodensity L kidney TECHNIQUE: Real-time scanning was performed of the kidneys and bladder, with image documentation. COMPARISON: [facility], CT, CT ABDOMEN PELVIS WO CON, 02/24/2021, 13:53. FINDINGS: Kidneys: Kidneys are normal in size. Right kidney measures 13.4 cm long; left kidney measures 13.2 cm long. Right renal cortical thickness is 1.4 cm; left renal cortical thickness is 1.4 cm. Renal cortical echotexture is normal. No hydronephrosis or nephrolithiasis. 2.7 x 2.5 x 2.1 cm heterogeneously hypoechoic and solid appearing lesion is seen in lower pole of left kidney. Internal vascularity is seen. No suspicious solid mass lesions is seen in right kidney. Bladder: Not evaluated. Miscellaneous: No free pelvic fluid. IMPRESSION: 1. 2.7 x 2.5 x 2.1 cm heterogeneously hypoechoic and solid appearing exophytic lesion involving lower pole of left kidney. Correlate with previous CT of abdomen and pelvis findings, this is concerning for solid renal renal malignancy such as renal cell carcinoma. 2. Normal appearing right kidney. No hydronephrosis. Dictated by: Juanjo Kim M.D. on 03/10/2021 at 17:46 Approved by: Juanjo Kim M.D. on 03/10/2021 at 17:48
== END ==
PROVIDERS: Family Provider Family Medicine; PCP Family Medicine; Referring Provider Family Medicine; Visit Provider Family Medicine
DX: N28.89 Other specified disorders of kidney and ureter (principal)
CPT/HCPCS: 76770

== ENCOUNTER → 2021-05-10 09:14 | Outpatient (CLI) | payer OTHER, SELFPAY ==
[2019-12-05 09:25] VITALS: BMI 47.2
[2021-05-10 10:41] LABS: Add Manual Diff / Slide Review NO; Basophils Absolute Auto 100 /uL (0-100); Basophils Percent Auto 0.6 % (0-2); Eosinophils Absolute Auto 100 /uL (0-450); Hematocrit 37.3 % (41-53); Hemoglobin 12.7 g/dL (13.5-17.5); Lymphocytes Absolute Auto 2000 /uL (1100-4500); Lymphocytes Percent Auto 20.5 % (25-40); Mean Corpuscular HGB Conc 33.9 % (30-36); Mean Corpuscular Hemoglobin 30.5 PG (26-34); Mean Corpuscular Volume 89.9 fL (80-100); Monocytes Absolute Auto 600 /uL (0-900); Monocytes Percent Auto 6.1 % (3-14); Neutrophils Absolute Auto 7100 /uL (1500-7000); Neutrophils Percent Auto 71.8 % (50-75); Platelet Count 291 X10^3/uL (150-400); Red Blood Cell Count 4.15 X10^6/uL (4.5-5.9); Red Cell Distribution Width 15.6 % (11.6-14.8); White Blood Cell Count 9.9 X10^3/uL (4.5-11.0)
[2021-05-10 11:00] LABS: Prothrombin Time 11.4 SECONDS (10.1-12.7)
[2021-05-10 11:05] LABS: Alanine Aminotransferase 21 IU/L (<50); Albumin 4.5 g/dL (3.5-5.0); Albumin Globulin Ratio 1.4 (1.0-2.8); Alkaline Phosphatase 75 U/L (38-126); Aspartate Aminotransferase 18 IU/L (17-59); BUN Creatinine Ratio 33.9 (6-22); Bilirubin Total 0.4 mg/dL (0.2-1.3); Blood Urea Nitrogen 41 mg/dL (9-20); Calcium 9.8 mg/dL (8.4-10.2); Carbon Dioxide 22 mmol/L (22-32); Chloride 110 mmol/L (98-107); Estimated Glomerular Filt Rate > 60.0 mL/min (>60); Globulin 3.3 g/dL (1.7-4.1); Glucose 96 mg/dL (80-110); HEMOLYSIS < 15 (0-50); Potassium 4.3 mmol/L (3.4-5.1); Sodium 142 mmol/L (137-145); Total Protein 7.8 g/dL (6.3-8.2)
[2021-05-10 11:32] LABS: Thyroid Stimulating Hormone 0.913 uIU/mL (0.47-4.68)
[2021-05-10 11:36] LABS: Ferritin 274 ng/mL (18-464)
[2021-05-10 12:55] LABS: Creatinine Urine Random 171.7 mg/dL
[2021-05-10 12:56] LABS: Microalbumi Creatinin Ratio Ur 30.8 ug/mg CR (<30); Microalbumin Urine Random 5.3 mg/dL (0-1.6)
== END ==
PROVIDERS: Family Provider Family Medicine; PCP Family Medicine; Referring Provider Family Medicine; Visit Provider Family Medicine
DX: Z01.810 Encounter for preprocedural cardiovascular examination (principal); N18.9 Chronic kidney disease, unspecified; E11.9 Type 2 diabetes mellitus without complications; I10 Essential (primary) hypertension; D64.9 Anemia, unspecified
CPT/HCPCS: 36415; 80053; 82043; 82570; 82728; 83036; 84443; 85025; 85610

== ENCOUNTER → 2021-07-15 09:23 | Outpatient (CLI) | payer OTHER, SELFPAY ==
[2019-12-05 09:25] VITALS: BMI 47.2
[2021-07-15 09:56] LABS: Add Manual Diff / Slide Review NO; Basophils Absolute Auto 100 /uL (0-100); Basophils Percent Auto 0.8 % (0-2); Eosinophils Absolute Auto 200 /uL (0-450); Eosinophils Percent Auto 1.9 % (2-4); Hematocrit 35.2 % (41-53); Hemoglobin 11.7 g/dL (13.5-17.5); Lymphocytes Absolute Auto 1900 /uL (1100-4500); Lymphocytes Percent Auto 21.2 % (25-40); Mean Corpuscular HGB Conc 33.3 % (30-36); Mean Corpuscular Hemoglobin 29.5 PG (26-34); Mean Corpuscular Volume 88.9 fL (80-100); Monocytes Absolute Auto 700 /uL (0-900); Monocytes Percent Auto 7.9 % (3-14); Neutrophils Absolute Auto 6300 /uL (1500-7000); Neutrophils Percent Auto 68.2 % (50-75); Platelet Count 286 X10^3/uL (150-400); Red Blood Cell Count 3.96 X10^6/uL (4.5-5.9); Red Cell Distribution Width 14.6 % (11.6-14.8); White Blood Cell Count 9.2 X10^3/uL (4.5-11.0)
[2021-07-15 11:12] LABS: BUN Creatinine Ratio 27.4 (6-22); Blood Urea Nitrogen 32 mg/dL (9-20); Carbon Dioxide 31 mmol/L (22-32); Chloride 103 mmol/L (98-107); Estimated Glomerular Filt Rate > 60 mL/min (>60); Glucose 100 mg/dL (80-110); HEMOLYSIS < 15 (0-50); Potassium 3.8 mmol/L (3.4-5.1); Sodium 139 mmol/L (137-145); Uric Acid 8.3 mg/dL (3.5-8.5)
== END ==
PROVIDERS: Family Provider Family Medicine; PCP Family Medicine; Referring Provider Family Medicine; Visit Provider Family Medicine
DX: D64.9 Anemia, unspecified (principal); M10.9 Gout, unspecified
CPT/HCPCS: 36415; 80048; 84550; 85025

== ENCOUNTER → 2022-08-03 07:12 | Outpatient (CLI) | payer OTHER, SELFPAY ==
[2019-12-05 09:25] VITALS: BMI 47.2
[2022-08-03 08:03] LABS: Add Manual Diff / Slide Review NO; Basophils Absolute Auto 100 /uL (0-100); Basophils Percent Auto 0.5 % (0-2); Eosinophils Absolute Auto 100 /uL (0-450); Eosinophils Percent Auto 1.2 % (2-4); Hematocrit 40.4 % (41-53); Hemoglobin 13.5 g/dL (13.5-17.5); Lymphocytes Absolute Auto 1500 /uL (1100-4500); Lymphocytes Percent Auto 16.2 % (25-40); Mean Corpuscular HGB Conc 33.5 % (30-36); Mean Corpuscular Hemoglobin 29.4 PG (26-34); Mean Corpuscular Volume 87.8 fL (80-100); Monocytes Absolute Auto 600 /uL (0-900); Monocytes Percent Auto 6.5 % (3-14); Neutrophils Absolute Auto 7200 /uL (1500-7000); Neutrophils Percent Auto 75.6 % (50-75); Platelet Count 219 X10^3/uL (150-400); Red Cell Distribution Width 14.9 % (11.6-14.8); White Blood Cell Count 9.5 X10^3/uL (4.5-11.0)
[2022-08-03 08:17] LABS: Alanine Aminotransferase 22 IU/L (<50); Albumin 3.8 g/dL (3.5-5.0); Albumin Globulin Ratio 1.3 (1.0-2.8); Alkaline Phosphatase 91 U/L (38-126); Aspartate Aminotransferase 19 IU/L (17-59); Blood Urea Nitrogen 20 mg/dL (9-20); Calcium 8.9 mg/dL (8.4-10.2); Carbon Dioxide 26 mmol/L (22-32); Chloride 104 mmol/L (98-107); Cholesterol 241 mg/dL (140-199); Estimated Glomerular Filt Rate > 60 mL/min (>60); Glucose 124 mg/dL (80-110); HDL Cholesterol 50 mg/dL (40-60); HEMOLYSIS < 15 (0-50); LDL Cholesterol Calculated 161 mg/dL (<100); Potassium 4.2 mmol/L (3.4-5.1); Sodium 138 mmol/L (137-145); Total Protein 6.8 g/dL (6.3-8.2); Triglycerides 149 mg/dL (35-150)
[2022-08-03 08:41] LABS: Creatinine Urine Random 88.7 mg/dL
[2022-08-03 08:46] LABS: Microalbumi Creatinin Ratio Ur 72.1 ug/mg CR (<30); Microalbumin Urine Random 6.4 mg/dL (0-1.6)
[2022-08-04 06:17] LABS: Labcorp Hemoglobin (Hb) A1c 6.3 % (4.8-5.6)
== END ==
PROVIDERS: Family Provider Family Medicine; PCP Family Medicine; Referring Provider Family Medicine; Visit Provider Family Medicine
DX: D64.9 Anemia, unspecified (principal); E34.9 Endocrine disorder, unspecified; E78.5 Hyperlipidemia, unspecified; N18.9 Chronic kidney disease, unspecified; I10 Essential (primary) hypertension
CPT/HCPCS: 36415; 80053; 80061; 82043; 82570; 83036; 85025

== ENCOUNTER → 2023-02-15 11:20 | Outpatient (CLI) | payer OTHER, SELFPAY ==
[2019-12-05 09:25] VITALS: BMI 47.2
--- NOTE | 2023-02-15 11:28 | DI.RAD.S_ITS ---
PROCEDURE: XR CHEST 2V INDICATIONS: cough x 10 days TECHNIQUE: 2 views of the chest were acquired. COMPARISON: None. FINDINGS: Limitations: Somewhat limited study since the anterior chest is not included on the lateral view. Surgical changes and devices: Surgical clips project over the anterior chest only seen on the lateral view. Lungs and pleura: Lungs are clear. No pleural effusions or pneumothorax. Mediastinum: Mediastinal contours are normal. Heart size is normal. Bones and chest wall: Kyphotic curvature of the thoracic spine. Soft tissues appear unremarkable. IMPRESSION: No acute cardiopulmonary abnormality seen. Dictated by: Michael Sanon M.D. on 02/15/2023 at 17:53 Approved by: Michael Sanon M.D. on 02/15/2023 at 17:54
[2023-02-15 13:07] LABS: Influenza A - CEPHEID Flu A NEGATIVE (NEGATIVE); Influenza B - CEPHEID Flu B NEGATIVE (NEGATIVE); Respiratory Syncytial Virus POSITIVE (Negative)
[2023-02-15 13:14] LABS: COVID-19 CEPHEID 4-PLEX PCR Negative (Negative)
== END ==
PROVIDERS: Family Provider Family Medicine; PCP Family Medicine; Referring Provider Physician Assistant; Visit Provider Physician Assistant
DX: R05.1 Acute cough (principal); J06.9 Acute upper respiratory infection, unspecified
CPT/HCPCS: 0241U; 71046

== ENCOUNTER → 2023-03-14 15:24 | Outpatient (CLI) | payer OTHER, SELFPAY ==
[2019-12-05 09:25] VITALS: BMI 47.2
[2023-03-14 17:51] LABS: TSH w/ Reflex to FT4 0.86 uIU/mL (0.47-4.68)
== END ==
PROVIDERS: Family Provider Family Medicine; PCP Family Medicine; Referring Provider Family Medicine; Visit Provider Family Medicine
DX: R53.83 Other fatigue (principal); R13.10 Dysphagia, unspecified
CPT/HCPCS: 36415; 84443

== ENCOUNTER → 2023-04-11 11:55 | Outpatient (CLI) | payer OTHER, SELFPAY ==
[2019-12-05 09:25] VITALS: BMI 47.2
--- NOTE | 2023-04-11 12:30 | DI.US.S_ITS ---
PROCEDURE: US RENAL COMPLETE INDICATIONS: RENAL MASS - SUSPICIOUS FOR RENAL CELL CARCINOMA ON PRIOR US TECHNIQUE: Real-time scanning was performed of the kidneys and bladder, with image documentation. COMPARISON: [facility], , US RENAL COMPLETE, 03/10/2021, 17:09. FINDINGS: Kidneys: Kidneys are normal in size. Right kidney measures 12.3 cm long; left kidney measures 13.0 cm long. Right renal cortical thickness is 1.6 cm; left renal cortical thickness is 1.7 cm. Renal cortical echotexture is normal. No hydronephrosis or nephrolithiasis. There is a hypoechoic cystic lesion within the right renal pelvis which measures 1.3 x 1.2 x 1.1 cm and likely represents a pararenal cyst. An exophytic mass is redemonstrated at the lower pole of the left kidney which measures 2.4 x 1.7 x 2.3 cm on the current study. This measured 2.7 x 2.1 x 2.5 cm on the study dated March 10, 2021. Bladder: Pre-void bladder volume is 304 mL. Post-void residual is 0 mL. Pre-void images demonstrate no intraluminal masses or stones. On pre-void images, neither ureteral jets are noted with color Doppler interrogation. (Of note, ureteral jets may not be detectable in up to 25% of cases due to insufficient differences in specific gravity between ureteral and bladder urine). Miscellaneous: No free pelvic fluid. IMPRESSION: 1. Exophytic left lower pole renal mass which is similar in size to the comparison CT dated March 10, 2021. Differential considerations include a solid mass and a complex cyst. Further characterization with renal mass protocol CT could be used to definitively characterize this lesion. 2. No hydronephrosis. 3. No postvoid residual. Dictated by: Madisyn Rao M.D. on 04/11/2023 at 14:07 Approved by: Madisyn Rao M.D. on 04/11/2023 at 14:13
== END ==
LOC: US 11:57
PROVIDERS: Family Provider Family Medicine; PCP Family Medicine; Referring Provider Family Medicine; Visit Provider Family Medicine
DX: N28.89 Other specified disorders of kidney and ureter (principal)
CPT/HCPCS: 76770

== ENCOUNTER → 2023-06-26 12:34 | Outpatient (CLI) | payer OTHER, SELFPAY ==
[2019-12-05 09:25] VITALS: BMI 47.2
[2023-06-26 13:09] LABS: Estimated Glomerular Filt Rate > 60 mL/min (>60)
[2023-06-26 13:18] LABS: Hemoglobin A1C% w Est Avg Glu 7.4 % (4.0-6.0)
== END ==
LOC: LAB 12:34
PROVIDERS: Family Provider Family Medicine; PCP Family Medicine; Referring Provider Family Medicine; Visit Provider Family Medicine
DX: E11.9 Type 2 diabetes mellitus without complications (principal); N28.89 Other specified disorders of kidney and ureter; E78.2 Mixed hyperlipidemia
CPT/HCPCS: 36415; 82565; 83036

== ENCOUNTER → 2023-06-26 13:10 | Outpatient (CLI) | payer OTHER, SELFPAY ==
[2019-12-05 09:25] VITALS: BMI 47.2
--- NOTE | 2023-06-26 13:11 | DI.CT.S_ITS ---
PROCEDURE: CT ABDOMEN RENAL PROTOCOL INDICATIONS: L renal lesion/mass TECHNIQUE: Optional 5 mm thick noncontrast images acquired from the diaphragm to the iliac crests. After the administration of intravenous contrast, 5 mm thick images again acquired from the diaphragm to the iliac crests in the arterial and urographic phases. 5 mm thick coronal and sagittal reformats were then acquired. For radiation dose reduction, the following was used: automated exposure control, adjustment of mA and/or kV according to patient size. COMPARISON: [facility], US, US RENAL COMPLETE, 04/11/2023, 12:31. [facility], CT, CT ABDOMEN PELVIS WO CON, 02/24/2021, 13:53. FINDINGS: Image quality: Diagnostic. Kidneys and Ureters: There is a exophytic mass on the inferior pole of the left kidney measuring 2.4 centimeters, unchanged compared with 02/24/2021. This mass demonstrates equivocal enhancement, with heterogeneous attenuation throughout the lesion. OTHER: Lower chest: Unremarkable. Liver: No solid mass. Gallbladder: No radiopaque gallstones or wall thickening. Biliary ducts: No biliary dilation. Pancreas: No ductal dilation. Spleen: Size is within normal limits. Adrenal Glands: 2.6 centimeter right adrenal adenoma based on Hounsfield units criteria (-5). 1.5 centimeter left adrenal adenoma based on Hounsfield units criteria (-10). Stomach and Bowel: Normal colonic caliber, without significant wall thickening. Colonic diverticulosis without evidence of diverticulitis. Peritoneum: No abnormal intraperitoneal fluid. No free air. Ventral Wall: No hernia. Abdominal Nodes: No retroperitoneal or mesenteric adenopathy by size criteria. Vessels: Aorta and inferior vena cava are normal in size. Bones: No aggressive osseous abnormality. IMPRESSION: No significant interval growth of the complex exophytic lesion on the inferior pole of the left kidney compared with 2021. Based on equivocal enhancement and heterogeneous attenuation, findings probably represent a complex renal cyst (Bosniak 3 or 4) versus indolent renal cell carcinoma. Consider imaging survellience versus ablation. Bilateral benign adrenal adenomas based on Hounsfield units criteria. [place] [employer] recommend routine biochemical screening to exclude a functional adenoma. Dictated by: Corey Barragan M.D. on 06/26/2023 at 15:44 Approved by: Corey Barragan M.D. on 06/26/2023 at 15:52
== END ==
PROVIDERS: Family Provider Family Medicine; PCP Family Medicine; Referring Provider Family Medicine; Visit Provider Family Medicine
DX: N28.89 Other specified disorders of kidney and ureter (principal); D35.01 Benign neoplasm of right adrenal gland; D35.02 Benign neoplasm of left adrenal gland; K57.90 Diverticulosis of intestine, part unspecified, without perforation or abscess without bleeding; E11.9 Type 2 diabetes mellitus without complications; E78.2 Mixed hyperlipidemia
CPT/HCPCS: 36415; 74170; 82565; 83036; Q9967

== ENCOUNTER → 2023-10-24 12:19 | Outpatient (CLI) | payer OTHER, SELFPAY ==
[2019-12-05 09:25] VITALS: BMI 47.2
[2023-10-24 14:40] LABS: HEMOLYSIS < 15 (0-50)
[2023-10-24 14:47] LABS: BUN Creatinine Ratio 24.4 (6-22); Blood Urea Nitrogen 22 mg/dL (9-20); Calcium 9.3 mg/dL (8.4-10.2); Carbon Dioxide 25 mmol/L (22-32); Chloride 107 mmol/L (98-107); Estimated Glomerular Filt Rate > 60 mL/min (>60); Glucose 146 mg/dL (80-110); Potassium 4.6 mmol/L (3.4-5.1); Sodium 137 mmol/L (137-145)
[2023-10-24 18:08] LABS: Prostate Specific Antigen Scrn 0.499 ng/mL (0.1-4.0)
== END ==
LOC: LAB 12:20
PROVIDERS: Family Provider Family Medicine; PCP Family Medicine; Referring Provider Urology; Visit Provider Urology
DX: N28.89 Other specified disorders of kidney and ureter (principal); Z12.5 Encounter for screening for malignant neoplasm of prostate
CPT/HCPCS: 36415; 80048; G0103

== ENCOUNTER → 2023-10-26 10:32 | Outpatient (CLI) | payer OTHER, SELFPAY ==
[2019-12-05 09:25] VITALS: BMI 47.2
--- NOTE | 2023-10-26 11:00 | DI.CT.S_ITS ---
PROCEDURE: CT ABDOMEN RENAL PROTOCOL INDICATIONS: Follow-up renal lesion TECHNIQUE: Optional 5 mm thick noncontrast images acquired from the diaphragm to the iliac crests. After the administration of intravenous contrast, 5 mm thick images again acquired from the diaphragm to the iliac crests in the arterial and urographic phases. 5 mm thick coronal and sagittal reformats were then acquired. For radiation dose reduction, the following was used: automated exposure control, adjustment of mA and/or kV according to patient size. COMPARISON: [facility], CT, CT ABDOMEN PELVIS WO CON, 02/24/2021, 13:53. [facility], CT, CT ABDOMEN RENAL PROTOCOL, 06/26/2023, 14:27. FINDINGS: Image quality: Diagnostic. Lower chest: Unremarkable. Liver: No solid mass. Hepatic steatosis. Gallbladder: No radiopaque gallstones or wall thickening. Biliary ducts: No biliary dilation. Pancreas: No ductal dilation. Spleen: Size is within normal limits. Adrenal Glands: Right adrenal nodule measuring 2.9 cm, (2/26), unchanged and consistent with a benign adrenal adenoma. Benign left adrenal adenoma measuring 1.8 cm (2/25), unchanged. Kidneys and Ureters: No hydronephrosis. No kidney stones. Left kidney inferior pole exophytic complicated cyst or mass measuring 3 cm, (4/44), previously 2.7 cm, and more remotely 2.7 cm in 2021. This measures 16 Hounsfield units on the noncontrast series and 26 Hounsfield units on the arterial phase. Questionable minimal enhancement. Stomach and Bowel: Normal colonic caliber, without significant wall thickening. Peritoneum: No abnormal intraperitoneal fluid. No free air. Ventral Wall: No hernia. Abdominal Nodes: No retroperitoneal or mesenteric adenopathy by size criteria. Small right mesenteric lymph node is unchanged. Vessels: Aorta and inferior vena cava are normal in size. Bones: No aggressive osseous abnormality. IMPRESSION: 1. Left kidney inferior pole exophytic complicated cyst or mass measuring 3 cm, slightly increased in size. Questionable minimal enhancement. -Recommend MRI renal protocol for further evaluation. 2. Small benign adrenal adenomas are unchanged. Hepatic steatosis. Dictated by: David Baldwin M.D. on 10/26/2023 at 20:58 Approved by: David Baldwin M.D. on 10/26/2023 at 21:20
== END ==
LOC: CT 10:32
PROVIDERS: Family Provider Family Medicine; PCP Family Medicine; Referring Provider Urology; Visit Provider Urology
DX: N28.89 Other specified disorders of kidney and ureter (principal); D35.02 Benign neoplasm of left adrenal gland; E27.9 Disorder of adrenal gland, unspecified; K76.0 Fatty (change of) liver, not elsewhere classified
CPT/HCPCS: 74170; Q9967

== ENCOUNTER → 2024-04-01 14:25 | Outpatient (CLI) | payer OTHER, SELFPAY ==
[2019-12-05 09:25] VITALS: BMI 47.2
--- NOTE | 2024-04-01 14:26 | DI.CT.S_ITS ---
PROCEDURE: CT ABDOMEN RENAL PROTOCOL INDICATIONS: Follow-up renal lesion/complex cyst TECHNIQUE: Optional 5 mm thick noncontrast images acquired from the diaphragm to the iliac crests. After the administration of intravenous contrast, 5 mm thick images again acquired from the diaphragm to the iliac crests in the arterial and urographic phases. 5 mm thick coronal and sagittal reformats were then acquired. For radiation dose reduction, the following was used: automated exposure control, adjustment of mA and/or kV according to patient size. COMPARISON: [facility], CT, CT ABDOMEN RENAL PROTOCOL, 10/26/2023, 10:59. [facility], CT, CT ABDOMEN RENAL PROTOCOL, 06/26/2023, 14:27. FINDINGS: Image quality: Diagnostic Lower chest: Mild basal scarring and atelectasis. There is associated pleural thickening. Normal heart size. Liver: Hepatic steatosis. Gallbladder and biliary system: Unremarkable, nondilated Pancreas: No ductal dilation Spleen: Nonenlarged Adrenals: Bilateral adrenal adenomas again seen. Kidneys: No hydronephrosis. No obstructing calcified stone. In the left lower pole, there is a lesion measuring 2.8 cm (/80), similar in size compared to 06/26/2023. Most of the contents are cystic. The wall measures 3-4 mm and there are central septations measuring slightly over 4 mm. Vessels and lymph nodes: The left renal vein is patent. Main portal vein is patent. No pathologic lymph nodes by size criteria. No abdominal aortic aneurysm Bowel and peritoneum: No small bowel obstruction. No pathologic ascites. Body wall: Unremarkable Bones: There are degenerative changes. No aggressive appearing osseous finding. IMPRESSION: Bosniak 3 left lower pole renal cyst again seen. These have intermediate probability of being malignant. This is stable compared to 2023 imaging. Bilateral adrenal adenomas again seen. Other findings above Dictated by: Ben Steven M.D. on 04/02/2024 at 8:43 Approved by: Ben Steven M.D. on 04/02/2024 at 8:49
[2024-04-01 15:08] LABS: Estimated Glomerular Filt Rate > 60 mL/min (>60)
== END ==
PROVIDERS: Radiology Diagnostic Radiology; Family Provider Family Medicine; PCP Family Medicine; Referring Provider Urology; Visit Provider Urology
DX: N28.1 Cyst of kidney, acquired (principal); N28.9 Disorder of kidney and ureter, unspecified; D35.02 Benign neoplasm of left adrenal gland; D35.01 Benign neoplasm of right adrenal gland; K76.0 Fatty (change of) liver, not elsewhere classified
CPT/HCPCS: 36415; 74170; 82565; Q9967

== ENCOUNTER → 2024-05-27 13:59 | Outpatient (CLI) | payer OTHER, SELFPAY ==
[2019-12-05 09:25] VITALS: BMI 47.2
[2024-05-27 14:33] LABS: Estimated Glomerular Filt Rate > 60 mL/min (>60)
== END ==
PROVIDERS: Family Provider Family Medicine; PCP Family Medicine; Referring Provider Urology; Visit Provider Urology
DX: Z01.812 Encounter for preprocedural laboratory examination (principal)
CPT/HCPCS: 36415; 82565

== ENCOUNTER → 2024-05-29 12:58 | Outpatient (CLI) | payer OTHER, SELFPAY ==
[2019-12-05 09:25] VITALS: BMI 47.2
--- NOTE | 2024-05-29 12:58 | DI.CT.S_ITS ---
PROCEDURE: CT ABDOMEN RENAL PROTOCOL INDICATIONS: Evaluate left renal lesion TECHNIQUE: Optional 5 mm thick noncontrast images acquired from the diaphragm to the iliac crests. After the administration of intravenous contrast, 5 mm thick images again acquired from the diaphragm to the iliac crests in the arterial and urographic phases. 5 mm thick coronal and sagittal reformats were then acquired. For radiation dose reduction, the following was used: automated exposure control, adjustment of mA and/or kV according to patient size. COMPARISON: [facility], CT, CT ABDOMEN RENAL PROTOCOL, 04/01/2024, 15:15. FINDINGS: Image quality: Diagnostic. Kidneys and Ureters: Stable heterogeneous mass on the inferior pole of the left kidney measuring 2.8 x 2.5 x 3.2 cm, previously 2.2 cm in 2021. There has been no significant interval change since 04/01/2024. The mass is exophytic, does not extend beyond the perirenal fascia or contact the renal collecting system or ureter. There is likely a enhancing nodular component seen along the superior margin (series 6, image 115). OTHER: Lower chest: Unremarkable. Liver: No solid mass. Hepatic steatosis. Gallbladder: No radiopaque gallstones or wall thickening. Biliary ducts: No biliary dilation. Pancreas: No ductal dilation. Spleen: Size is within normal limits. Adrenal Glands: Benign right adrenal adenoma based on Hounsfield units criteria (-3), measuring 3.2 cm. Benign 2.1 cm left adrenal adenoma based on Hounsfield units criteria (-1 Hounsfield unit). Stomach and Bowel: Normal colonic caliber, without significant wall thickening. Peritoneum: No abnormal intraperitoneal fluid. No free air. Ventral Wall: No hernia. Abdominal Nodes: No retroperitoneal or mesenteric adenopathy by size criteria. Vessels: Aorta and inferior vena cava are normal in size. Bones: No aggressive osseous abnormality. Degenerative disc disease of the lumbar spine. Bilateral sacroiliitis. IMPRESSION: No significant interval change in size of the cystic lesion with probable enhancing nodularity along the inferior pole of the left kidney compared with 04/01/2024, but with interval growth since 2021. Findings probably represent a Bosniak 4 cystic mass. No evidence of invasion of the renal fascia. No venous invasion or retroperitoneal adenopathy. Benign bilateral adrenal adenomas. [place] [employer] recommend routine biochemical screening to exclude a functional adenoma. Dictated by: Corey Barragan M.D. on 05/29/2024 at 20:44 Approved by: Corey Barragan M.D. on 05/29/2024 at 20:51
== END ==
PROVIDERS: Family Provider Family Medicine; PCP Family Medicine; Referring Provider Urology; Visit Provider Urology
DX: N28.89 Other specified disorders of kidney and ureter (principal); D35.02 Benign neoplasm of left adrenal gland; D35.01 Benign neoplasm of right adrenal gland; K76.0 Fatty (change of) liver, not elsewhere classified; M46.1 Sacroiliitis, not elsewhere classified; M51.369 Other intervertebral disc degeneration, lumbar region without mention of lumbar back pain or lower extremity pain
CPT/HCPCS: 74170; Q9967

== ENCOUNTER → 2024-08-21 10:45 | Outpatient (CLI) | payer OTHER, SELFPAY ==
[2019-12-05 09:25] VITALS: BMI 47.2
[2024-08-21 12:18] LABS: Hemoglobin A1C% w Est Avg Glu 7.4 % (4.0-6.0)
[2024-08-21 12:24] LABS: Alanine Aminotransferase 35 IU/L (<50); Albumin 3.9 g/dL (3.5-5.0); Albumin Globulin Ratio 1.6 (1.0-2.8); Alkaline Phosphatase 95 U/L (38-126); Blood Urea Nitrogen 20 mg/dL (9-20); Calcium 9.3 mg/dL (8.4-10.2); Carbon Dioxide 21 mmol/L (22-32); Chloride 109 mmol/L (98-107); Cholesterol 191 mg/dL (140-199); Estimated Glomerular Filt Rate > 60 mL/min (>60); Globulin 2.5 g/dL (1.7-4.1); Glucose 157 mg/dL (70-99); HDL Cholesterol 35 mg/dL (40-60); HEMOLYSIS < 15 (0-50); Potassium 4.2 mmol/L (3.4-5.1); Sodium 137 mmol/L (137-145); Total Protein 6.4 g/dL (6.3-8.2); Triglycerides 329 mg/dL (35-150)
[2024-08-21 15:32] LABS: Microalbumi Creatinin Ratio Ur 4.0 ug/mg CR (<30)
== END ==
PROVIDERS: Family Provider Family Medicine; PCP Family Medicine; Referring Provider Family Medicine; Visit Provider Family Medicine
DX: E11.9 Type 2 diabetes mellitus without complications (principal); I10 Essential (primary) hypertension; E78.2 Mixed hyperlipidemia
CPT/HCPCS: 36415; 80053; 80061; 82043; 82570; 83036